=== PATIENT | male | born 1940 | race Caucasian/White ===

== ENCOUNTER 2019-06-02 15:40 | Inpatient (IN) | payer OTHER ==
[~2019-06-02] VITALS: Ht 170.2 cm; Wt 98.0 kg
--- NOTE | 2019-06-02 15:44 | NUR ---
Patient to ER bed 01 to gown for evaluation. Side rails up.
--- NOTE | 2019-06-02 15:45 | NUR ---
ECG done at bedside as ordered by Dr. White. Patient tolerated the procedure well. Report given to .
[2019-06-02] MEDS ORDERED: NACL 0.9% 1,000 ML IV ONE (15:46)
--- NOTE | 2019-06-02 15:46 | NUR ---
ER Dr. White at bedside examining patient.
[2019-06-02] MEDS ORDERED: MORPHINE 2 MG/ML INJ. SYRINGE IVP ONE (16:00)
[2019-06-02] MEDS ORDERED: CLOPIDOGREL BISULFATE 75 MG TABLET PO ONE (16:00)
--- NOTE | 2019-06-02 16:00 | NUR ---
structured cabling technician at bedside collecting blood specimen as ordered by Dr. White. Patient tolerated the procedure well.
--- NOTE | 2019-06-02 16:05 | NUR ---
Administered Plavix PO and Morphine Sulfate IVP as ordered by Dr. White. Patient tolerated the medications well. See eMAR for details.
--- NOTE | 2019-06-02 16:13 | NUR ---
X-ray tech at bedside doing a chest x-ray. Patient tolerated the procedure well.
[2019-06-02 16:16] VITALS: BP_SYST 117
[2019-06-02 16:24] LABS: BASOPHILS % (AUTO) 0.5 % (0.0-2.0); EOSINOPHILS # (AUTO) 0.1 K/uL (0.0-0.4); EOSINOPHILS % (AUTO) 1.6 % (0.0-4.0); HEMATOCRIT 25.1 % (36-54); HEMOGLOBIN 8.5 g/dL (14.0-18.0); LYMPHOCYTES # (AUTO) 0.6 K/uL (1.0-5.5); LYMPHOCYTES % (AUTO) 12.5 % (20.5-51.5); MEAN CORPUSCULAR HEMOGLOBIN 33 pg (27-31); MEAN CORPUSCULAR HGB CONC 34 % (32-36); MEAN CORPUSCULAR VOLUME 96 fL (79.0-98.0); MONOCYTES # (AUTO) 0.8 K/uL (0.0-1.0); MONOCYTES % (AUTO) 16.7 % (1.7-9.3); NEUTROPHILS # (AUTO) 3.2 K/uL (1.8-7.7); NEUTROPHILS % (AUTO) 68.7 % (40.0-70.0); PLATELET COUNT (AUTO) 132 K/uL (130-430); RED BLOOD CELL COUNT(AUTO) 2.61 MIL/uL (4.2-6.2); RED CELL DISTRIBUTION WIDTH 13.8 % (9.0-15.0); WHITE BLOOD COUNT (AUTO) 4.7 K/uL (4.8-10.8)
[2019-06-02 16:31] LABS: ANION GAP 4 (5-15); CALCIUM 8.5 mg/dL (8.4-11.0); CHLORIDE 101 mmol/L (98-107); CREATININE 1.71 mg/dL (0.55-1.30); GLUCOSE 328 mg/dL (70-99); POTASSIUM 4.2 mmol/L (3.5-5.1); SODIUM SERUM 134 mmol/L (136-145); UREA NITROGEN, BLOOD 27 mg/dL (8-21)
[2019-06-02 16:39] LABS: ALANINE AMINOTRANSFERASE 29 U/L (12-78); ALBUMIN 2.4 g/dL (3.4-4.8); ASPARTATE AMINOTRANSFERASE 27 U/L (10-37); TOTAL BILIRUBIN 0.4 mg/dL (0.0-1.0)
[2019-06-02] MEDS ORDERED: INSULIN REGULAR, HUMAN 10 UNITS/0.1 ML INJ IVP ONE (17:00)
--- NOTE | 2019-06-02 17:20 | NUR ---
Administered Insulin IVP as ordered by Dr. White. Patient tolerated the medications well. See eMAR for details.
--- NOTE | 2019-06-02 17:29 | NUR ---
Received admitting orders from Dr. Lopez.
[2019-06-02 17:30] LABS: INR 1.1 (0.80-1.20); PROTHROMBIN TIME 11.4 SECS (9.5-12.5)
--- NOTE | 2019-06-02 18:22 | NUR ---
Patient is sitting up comfortably in bed, having a good conversation with his . No apparent distress noted.
--- NOTE | 2019-06-02 19:17 | NUR ---
Report given and care transferred to NICHLOE King.
--- NOTE | 2019-06-02 20:45 | NUR ---
Admission Note Received patient from ER with diagnosis of CHEST PAIN, SOB. Initial Plan of Care discussed-patient verbalized understanding. Oriented to room, call light, pain management and safety.
--- NOTE | 2019-06-02 20:45 | NUR ---
Transfer to Tele via ACLS protocol. Licensed nurse present. IV present no signs or symptoms of infiltration.
[2019-06-02 21:07] VITALS: BP_SYST 150
[2019-06-02] MEDS: HYDROcodone/ACETAMIN 5-325 MG TAB (NORCO/ VICODIN) PO PRN (21:46)
--- NOTE | 2019-06-02 21:46 | NUR ---
PAIN/NORCO PT REPORTING BACK PAIN, GIVEN NORCO 5-325 MG PO PER REQUEST ORDERED PRN. MEDICATION AND POTENTIAL SIDE EFFECTS DISCUSSED, PT VERBALIZED UNDERSTANDING. NO S/S OF DISTRESS. WILL MONITOR.
--- NOTE | 2019-06-02 23:20 | NUR ---
DR. LAMINE VEGA MD AT NURSES STATION.
[2019-06-02] MEDS ORDERED: MORPHINE 4 MG/ML INJ. SYRINGE IVP PRN (23:30)
[2019-06-02] MEDS ORDERED: ACETAMINOPHEN 325 MG TABLET PO PRN (23:30)
[2019-06-02] MEDS ORDERED: ALBUTEROL SULFATE 0.083% 2.5 MG/3 ML VIAL.NEB INH PRN (23:30)
[2019-06-02] MEDS ORDERED: INSULIN ASPART 100 UNITS/ML, 10 ML VIAL (NovoLOG) SUBCUT PRN (23:30)
[2019-06-02] MEDS ORDERED: ONDANSETRON HCL 4 MG/2 ML VIAL IVP PRN (23:30)
[2019-06-02] MEDS ORDERED: MORPHINE 2 MG/ML INJ. SYRINGE IVP PRN (23:30)
[2019-06-03 00:06] VITALS: BP_SYST 150
[2019-06-03 00:16] VITALS: BP_SYST 146
--- NOTE | 2019-06-03 01:30 | NUR ---
SNACKS PT GIVEN SANDWICH AND PUDDING PER REQUEST.
--- NOTE | 2019-06-03 03:22 | NUR ---
RESTING PT RESTING IN BED, NO S/S OF ACUTE DISTRESS, BREATHING IS UNLABORED TO ROOM AIR. SAFETY PRECAUTIONS MAINTAINED. CALL LIGHT IS WITH PT. WILL MONITOR.
--- NOTE | 2019-06-03 03:58 | NUR ---
Consultation Paged Reason for Consultation: Chest Pain Was consult called: Y Person who was notified: Jennifer Consulting Physician: Steve Barcenas Stock Counter Ordering Physician: Dr. Lopez
--- NOTE | 2019-06-03 04:07 | NUR ---
AMBULATED TO RESTROOM PT AMBULATED TO RESTROOM WITH NURSE ASSIST. PT RETURNED TO BED AND REPOSITIONED HIMSELF FOR COMFORT. PT GETTING EKG AT THIS TIME. SAFETY PRECAUTIONS MAINTAINED. WILL MONITOR.
[2019-06-03] MEDS: HYDROcodone/ACETAMIN 5-325 MG TAB (NORCO/ VICODIN) PO PRN ×2 (06:24→12:52)
[2019-06-03 06:35] LABS: BASOPHILS % (AUTO) 0.5 % (0.0-2.0); EOSINOPHILS # (AUTO) 0.1 K/uL (0.0-0.4); EOSINOPHILS % (AUTO) 2.9 % (0.0-4.0); HEMATOCRIT 26.6 % (36-54); HEMOGLOBIN 8.8 g/dL (14.0-18.0); LYMPHOCYTES # (AUTO) 0.8 K/uL (1.0-5.5); LYMPHOCYTES % (AUTO) 23.1 % (20.5-51.5); MEAN CORPUSCULAR HEMOGLOBIN 32 pg (27-31); MEAN CORPUSCULAR HGB CONC 33 % (32-36); MEAN CORPUSCULAR VOLUME 98 fL (79.0-98.0); MONOCYTES # (AUTO) 0.6 K/uL (0.0-1.0); NEUTROPHILS # (AUTO) 2.1 K/uL (1.8-7.7); NEUTROPHILS % (AUTO) 57.5 % (40.0-70.0); PLATELET COUNT (AUTO) 138 K/uL (130-430); RED BLOOD CELL COUNT(AUTO) 2.72 MIL/uL (4.2-6.2); RED CELL DISTRIBUTION WIDTH 13.8 % (9.0-15.0); WHITE BLOOD COUNT (AUTO) 3.6 K/uL (4.8-10.8)
[2019-06-03] MEDS: INSULIN REGULAR, HUMAN 100 UNITS/ML, 10 ML VIAL (humuLIN R) SUBCUT PRN ×2 (06:57→12:18)
[2019-06-03 06:59] LABS: ALANINE AMINOTRANSFERASE 28 U/L (12-78); ALBUMIN 2.6 g/dL (3.4-4.8); ANION GAP 4 (5-15); ASPARTATE AMINOTRANSFERASE 26 U/L (10-37); CHLORIDE 100 mmol/L (98-107); CREATININE 1.62 mg/dL (0.55-1.30); GLUCOSE 248 mg/dL (70-99); POTASSIUM 3.9 mmol/L (3.5-5.1); SODIUM SERUM 135 mmol/L (136-145); TOTAL BILIRUBIN 0.6 mg/dL (0.0-1.0); UREA NITROGEN, BLOOD 25 mg/dL (8-21)
--- NOTE | 2019-06-03 07:36 | NUR ---
closing note pt resting in bed, no s/s of acute distress, breathing is even and unlabored. safety and fall precautions are in place. care endorsed to day shift RN.
--- NOTE | 2019-06-03 07:45 | NUR ---
AM rounds: Patient called for assist to the bathroom, when I go to the room patient was angry, verbalizing demeaning words. Went ahead and assisted him to get out of the bed, patient said " give me that little thing," referring to my wrist in a grabbing manner .The whole entire time that I was in the the room trying to assist him, he was verbally mean. Call light in reach.
[2019-06-03 07:53] LABS: TOTAL IRON BIND. CAPACITY 238 ug/dL (250-450)
[2019-06-03 08:30] VITALS: BP_SYST 151
--- NOTE | 2019-06-03 08:30 | NUR ---
continue of care received pt from nikolai bunch. checked pt. a//ox4.denies any chest pain or pressure. notin acute distress. safety and fall precautions in place. poc discuseed with pt. verbalized understanding. needs attended. will continue to monitor
[2019-06-03 09:39] LABS: CHOLESTEROL 130 mg/dL (<200); HDL CHOLESTEROL 35 mg/dL (>45); LDL CHOLESTEROL 78 mg/dL (<100); TRIGLYCERIDES 93 mg/dL (30-150)
[2019-06-03] MEDS ORDERED: BISA-79 PR (10:36)
[2019-06-03] MEDS ORDERED: HYDR-4272 PO (10:36)
[2019-06-03] MEDS ORDERED: LOVA40TA75 PO (10:36)
[2019-06-03] MEDS ORDERED: SENN-278 PO ×2 (10:36)
[2019-06-03] MEDS ORDERED: APIX5TAB4 PO (10:36)
[2019-06-03] MEDS ORDERED: ACET160S2 PO (10:36)
[2019-06-03] MEDS ORDERED: DOXY100C PO (10:36)
[2019-06-03] MEDS ORDERED: GLUC-138 PO (10:36)
[2019-06-03] MEDS ORDERED: MOM PO (10:36)
[2019-06-03] MEDS ORDERED: GLIP10TA3 PO (10:36)
[2019-06-03] MEDS ORDERED: LOSA50TA3 PO (10:36)
[2019-06-03] MEDS ORDERED: SSREG SUBCUT (10:36)
[2019-06-03] MEDS ORDERED: OSCD500 PO (10:36)
[2019-06-03] MEDS ORDERED: UMEC1BLS IH (10:36)
[2019-06-03] MEDS ORDERED: PHEN-726 PO (10:36)
[2019-06-03] MEDS ORDERED: VIT1CAPS46 PO (10:36)
[2019-06-03] MEDS ORDERED: TAMS-11 PO (10:36)
[2019-06-03] MEDS ORDERED: FLEETMO RC (10:36)
[2019-06-03] MEDS ORDERED: DOCU-144 PO (10:36)
[2019-06-03] MEDS ORDERED: CARV3.1246 PO (10:36)
[2019-06-03 12:00] VITALS: BP_SYST 156
[2019-06-03] MEDS ORDERED: APIXABAN 2.5 MG TABLET PO ONE (12:15)
--- NOTE | 2019-06-03 12:26 | NUR ---
Discharge Planning: MARKETING SUPPORT COORDINATOR placed call to life insurance actuary (Ana M [phone]) and left a message for her alerting her of the DC to SNF order.
[2019-06-03] MEDS ORDERED: ISOSORBIDE MONONITRATE 30 MG TAB.ER.24H PO ONE (12:30)
--- NOTE | 2019-06-03 12:34 | NUR ---
rounds pt stable asssited pt bathroom. using walker. notin acute distress. blood sugar 245mg/dl. 4 units reg insulin given as per ss.. lunch served. pt comfortable. will continue to monitor
--- NOTE | 2019-06-03 13:00 | NUR ---
ROUNDS PT STABLE NOT IN ACUTE DISTRESS. DENIES ANY PAIN OR DISCOMFORT. DR BENAVIDES SPOKE TO PT REGARDING DISCHARGE BACK TO [facility].. PT VERBALIZED UNDERSTANDING. INFORMED DR BENAVIDES ABOUT PT BP 156/67. NO NEW ORDER RECEIVED
--- NOTE | 2019-06-03 16:00 | NUR ---
ROUNDS PT STABLE NOTIN ACUTE DISTRESS. KEPT COMFORTABLE. DENIES ANY PAIN AT THIS TIME
[2019-06-03 16:03] VITALS: BP_SYST 141; BP_SYST 151
--- NOTE | 2019-06-03 17:25 | NUR ---
D/C Patient Patient given medication reconciliation form and D/C instructions. Exit Care provided. Patient verbalized understanding. MD discussed with patient the results and treatment provided. . Patient in stable condition, ID band removed. IV catheter removed, intact and dressing applied, no active bleeding. . Patient educated on pain management. All belongings sent with patient. report given to america bunch in [facility]. pt transfered to [facility] report given to EMT sean. discharge packet given to EMT.
[2019-06-03] MEDS ORDERED: APIXABAN 2.5 MG TABLET PO SCH (21:00)
[2019-06-04] MEDS ORDERED: ISOSORBIDE MONONITRATE 30 MG TAB.ER.24H PO SCH (09:00)
== END 2019-06-03 17:25 | DRG 205 ==
LOC: SED 15:40 → STU 17:23
PROVIDERS: ADMIT Internal Medicine; ATTEND Internal Medicine
DX: M94.0 Chondrocostal junction syndrome [Tietze] (principal); E43 Unspecified severe protein-calorie malnutrition; N18.4 Chronic kidney disease, stage 4 (severe); I25.10 Atherosclerotic heart disease of native coronary artery without angina pectoris; I12.9 Hypertensive chronic kidney disease with stage 1 through stage 4 chronic kidney disease, or unspecified chronic kidney disease; D63.8 Anemia in other chronic diseases classified elsewhere; E11.51 Type 2 diabetes mellitus with diabetic peripheral angiopathy without gangrene; E11.22 Type 2 diabetes mellitus with diabetic chronic kidney disease; E78.5 Hyperlipidemia, unspecified; I45.10 Unspecified right bundle-branch block; Z95.1 Presence of aortocoronary bypass graft; Z87.891 Personal history of nicotine dependence; Z83.3 Family history of diabetes mellitus; Z82.49 Family history of ischemic heart disease and other diseases of the circulatory system; Z79.4 Long term (current) use of insulin; Z79.01 Long term (current) use of anticoagulants; Z79.899 Other long term (current) drug therapy; I25.2 Old myocardial infarction
CPT/HCPCS: 36415; 71045; 80053; 80061; 82962; 83036; 83540-TC; 83550-TC; 84484; 85025; 85610-TC; 85730-TC; 87081; 93005; 93306; 96361; 96374; 96375; 99285; G0378; J1815; J2270